=== PATIENT | male | born 1945 | race Caucasian/White ===

== ENCOUNTER → 2024-06-08 | Outpatient (CLI) | payer OTHER | END | disposition home or self-care (01) | LOC: SHCH 15:08 | PROVIDERS: ATTEND Student in an Organized Health Care Education/Training Program | DX: I48.19 Other persistent atrial fibrillation (principal); R06.02 Shortness of breath | CPT/HCPCS: 93306 ==

== ENCOUNTER → 2024-07-07 | Outpatient (CLI) | payer OTHER ==
[~2024-07-07] VITALS: Ht 177.8 cm; Wt 90.6 kg
[~2024-07-07] MED LIST: AMIO200T68 PO; APIX2.5T PO; ATOR-2 PO; CLOP75TA32 PO; DOXA8TAB81 PO; FURO20TA4 PO; HYDR50TA37 PO; SERT-439 PO; VALS160T29 PO
[2024-07-07 09:47] VITALS: BP 202/84; PULSE 75; RESP 14; TEMP 98.2
[2024-07-07 09:59] LABS: BASOPHILS # (AUTO) 0.01 K/uL (0.00-0.20); BASOPHILS % (AUTO) 0.1 % (0.0-5.0); EOSINOPHILS # (AUTO) 0.05 K/uL (0.00-0.70); EOSINOPHILS % (AUTO) 0.7 % (0.0-8.0); HEMATOCRIT 41.4 % (42-54); IMMATURE GRANULOCYTE ABSOLUTE 0.05 K/uL (0-1); LYMPHOCYTES # (AUTO) 1.1 K/uL (1.0-4.8); LYMPHOCYTES % (AUTO) 15.9 % (21.0-51.0); MEAN CORPUSCULAR HEMOGLOBIN 28.9 pg (27.0-33.0); MEAN CORPUSCULAR HGB CONC 31.4 g/dL (32.0-36.0); MONOCYTES # (AUTO) 0.5 K/uL (0.1-1.0); MONOCYTES % (AUTO) 6.9 % (3.0-13.0); NEUTROPHILS # (AUTO) 5.2 K/uL (1.8-7.7); NEUTROPHILS % (AUTO) 75.7 % (40.0-77.0); PLATELET COUNT (AUTO) 160 K/uL (130-400); RED CELL DISTRIBUTION WIDTH 14.6 % (11.0-15.5); WHITE BLOOD COUNT (AUTO) 6.8 K/uL (4.8-10.8)
[2024-07-07 10:08] LABS: POTASSIUM 3.8 mmol/L (3.5-5.1)
--- NOTE | 2024-07-08 10:36 | NUR ---
report dr goff informed pt reported he is on eliquis 2.5mg bid not 5mg bid. received orders to cancel. dr adams was also notified by dr goff. pt notified
== END ==
LOC: EDUNIT# 06-08 11:00 → DAH 08:00 → EDSTATUS 07-09 09:00
PROVIDERS: ATTEND Student in an Organized Health Care Education/Training Program
DX: Z01.818 Encounter for other preprocedural examination (principal); I48.19 Other persistent atrial fibrillation; Z82.49 Family history of ischemic heart disease and other diseases of the circulatory system; Z83.3 Family history of diabetes mellitus; Z79.899 Other long term (current) drug therapy
CPT/HCPCS: 36415; 80048; 85025

== ENCOUNTER 2024-08-26 09:01 | Day surgery (SDC) | payer OTHER ==
[2024-08-24 14:40] LABS: BASOPHILS # (AUTO) 0.02 K/uL (0.00-0.20); BASOPHILS % (AUTO) 0.4 % (0.0-5.0); EOSINOPHILS % (AUTO) 2.2 % (0.0-8.0); HEMATOCRIT 38.1 % (42-54); IMMATURE GRANULOCYTE ABSOLUTE 0.01 K/uL (0-1); LYMPHOCYTES # (AUTO) 1.1 K/uL (1.0-4.8); LYMPHOCYTES % (AUTO) 24.5 % (21.0-51.0); MEAN CORPUSCULAR HEMOGLOBIN 28.9 pg (27.0-33.0); MEAN CORPUSCULAR HGB CONC 31.5 g/dL (32.0-36.0); MEAN CORPUSCULAR VOLUME 91.8 fL (79-99); MONOCYTES # (AUTO) 0.5 K/uL (0.1-1.0); MONOCYTES % (AUTO) 10.7 % (3.0-13.0); NEUTROPHILS # (AUTO) 2.8 K/uL (1.8-7.7); PLATELET COUNT (AUTO) 121 K/uL (130-400); RED BLOOD CELL COUNT(AUTO) 4.15 MIL/uL (4.50-6.20); RED CELL DISTRIBUTION WIDTH 15.7 % (11.0-15.5); WHITE BLOOD COUNT (AUTO) 4.6 K/uL (4.8-10.8)
[2024-08-24 14:41] VITALS: BP 180/79; PULSE 60; RESP 18; TEMP 98.1
--- NOTE | 2024-08-24 14:41 | EKG ---
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
[2024-08-24 14:50] LABS: CREATININE 1.1 mg/dL (0.5-1.3); POTASSIUM 4.4 mmol/L (3.5-5.1)
[2024-08-24 14:53] LABS: INR 1.29 (0.85-1.15); PROTHROMBIN TIME 13.3 SEC (9.6-11.6)
[2024-08-24 14:54] LABS: PARTIAL THROMBOPLASTIN TIME 30.9 SEC (26.3-35.5)
[~2024-08-26] VITALS: Ht 180.3 cm; Wt 93.0 kg
[~2024-08-26 09:01] MED LIST changes: -APIX2.5T PO; +APIX5TAB PO; -HYDR50TA37 PO
[2024-08-26 09:25] VITALS: BP 184/73; PULSE 62; RESP 16; TEMP 97.9
[2024-08-26] MEDS ORDERED: 0.9%NACL 1000ML 1,000 ML IV SCH (10:00)
[2024-08-26] MEDS ORDERED: LIDOCAINE HCL 2% VISCOUS 15 ML UDCUP PO ONE (10:00)
[2024-08-26] MEDS ORDERED: proPOFol 10 MG/ML 20ML VIAL IV ONE ×2 (10:25→10:31)
[2024-08-26] MEDS ORDERED: LIDOCAINE PF 100MG/5ML (2%) SYRINGE 5ML ONE (10:30)
--- NOTE | 2024-08-26 10:30 | NUR ---
DR. Mile FRY ARRIVED ASKING IF ORDER STATE CARDIOVERSION BY DR. ZUNIGA WELL, VERIFIED ORDERS WITH DR. FRY AND NO ORDERS FOR CARDIOVERSION BY DR. ZUNIGA NOTED. SHE CALLED DR. ZUNIGA TO CONFIRM IF IT CAN BE DONE HE DID STATE YES. WRITTEN CONSENT WAS DONE PROCEDURE WAS EXPLAINED TO PT BY DR. FRY AND MYSELF.
[2024-08-26] MEDS ORDERED: phenylEPHRINE HCL 10 MG/ML 1ML VIAL IV ONE (10:39)
--- NOTE | 2024-08-26 10:42 | NUR ---
RUPALI STARTED AT THIS TIME VSS NAD WILL CONTINUE TO MONITOR PT.
--- NOTE | 2024-08-26 10:44 | NUR ---
DURING RUPALI DR. FRY STATED WE WILL NOT BE ABLE TO DO THE SYNCHRONIZED CARDIOVERSION D/T SMALL BLOOD CLOT IN APPENDAGE, DR. ZUNIGA AT BEDSIDE AGREED TO ABORT SYNCHRONIZED CARDIOVERSION D/T BLOOD CLOT. RUPALI CONTINUED VSS NAD DURING PROCEDURE.
--- NOTE | 2024-08-26 10:49 | NUR ---
RUPALI FINISHED AT THIS TIME ANJU GARNETT
[2024-08-26 11:05] VITALS: BP 162/65; PULSE 56; RESP 14
--- NOTE | 2024-08-26 11:05 | NUR ---
PT AWAKE SPEAKING WITH STAFF.VSS
[2024-08-26 11:20] VITALS: BP 162/66; PULSE 51; RESP 14
[2024-08-26 11:35] VITALS: BP 173/68; PULSE 56; RESP 15
[2024-08-26 11:50] VITALS: BP 172/62; PULSE 56; RESP 14
--- NOTE | 2024-08-26 14:17 | HMCSR ---
APPROVED REPORT EXAM: Transesophageal echocardiogram with color flow Doppler. INDICATION ICD: Atrial fibrillation Reason For Test : Rule out Intracardiac Thrombus. PROCEDURE After obtaining informed consent, patient underwent transesophageal echo in the daypatient dept. 15 mL 2% Viscous Lidocaine was given as a topical anesthetic prior to the administration of the consc ious sedation. Type of Sedation: General Anesthesia Sedation was administered by please refer to medication administration record. . Sedation was achieved with please refer to medication administration record. intravenously. Transesophageal probe was inserted and advanced into esophagus without difficulty by Selina Romero MD. RUPALI was performed and images were obtained, probe was removed without complications. Throughout the procedure, the blood pressure, pulse oximetry, cardiac rhythm, and rate were monitored . The patient tolerated the procedure without adverse effects. Recovery from conscious sedation was une ventful and vital signs were stable. Left Ventricle Left ventricular cavity size is normal. There is normal left ventricular wall thickness. LVEF is 50-5 5%. Right Ventricle The right ventricle is normal size. The right ventricular systolic function is normal. Atria The left atrium is severely dilated. Spontaneous contrast noted in left atrium. Left atrial appendage thrombus noted. No evidence of PFO/ASD by color doppler. The right atrium is severely dilated.Sponta neous contrast noted in right atrium. Aortic Valve TAVR present Paravalvular leak noted. Moderate aortic regurgitation. There is no aortic valvular sten osis. Mitral Valve Mitral valve leaflets open well. There is mild to moderate mitral valve regurgitation noted with two eccentric jets. There is no mitral valve stenosis. Tricuspid Valve The tricuspid valve is normal in structure. There is moderate tricuspid valve regurgitation noted. Pulmonic Valve The pulmonary valve is normal in structure. There is no pulmonic valvular regurgitation. Great Vessels The aortic root is normal in size. The ascending aorta is normal in size.The descending aorta is norm al in size. Pericardium There is no pericardial effusion. Conclusion Left ventricular cavity size is normal. LVEF is 50-55%. The right ventricle is normal size. The right ventricular systolic function is normal. The left atrium is severely dilated. Spontaneous contrast noted in left atrium. Left atrial appendage thrombus noted. The right atrium is severely dilated.Spontaneous contrast noted in right atrium. No evidence of PFO/ASD by color doppler. TAVR present Paravalvular leak noted. Moderate aortic regurgitation. There is mild to moderate mitral valve regurgitation noted with two eccentric jets. There is moderate tricuspid valve regurgitation noted. There is no pericardial effusion.
--- NOTE | 2024-08-27 11:06 | EKG ---
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
== END 2024-08-26 12:05 | disposition home or self-care (01) ==
LOC: DAH 09:01 → EDSTATUS 11:00 → DAH 12:05
PROVIDERS: ATTEND Student in an Organized Health Care Education/Training Program
DX: I48.19 Other persistent atrial fibrillation (principal); I08.3 Combined rheumatic disorders of mitral, aortic and tricuspid valves; I49.3 Ventricular premature depolarization; I35.0 Nonrheumatic aortic (valve) stenosis; I10 Essential (primary) hypertension; R06.02 Shortness of breath; I27.20 Pulmonary hypertension, unspecified; R00.2 Palpitations; E78.2 Mixed hyperlipidemia; Z90.49 Acquired absence of other specified parts of digestive tract; Z79.01 Long term (current) use of anticoagulants; Z79.899 Other long term (current) drug therapy
CPT/HCPCS: 80048; 85025; 85610; 85730; 36415; 93005 ×2; 93312; 82948; 93325; J2003; J2704; A4620; A4215; A4222; A4221; A4663; A4216; A4606; A4223 ×3; J2371; J3490

== ENCOUNTER 2024-12-16 08:11 | Inpatient (IN) | payer OTHER ==
--- NOTE | 2024-12-14 09:43 | EKG ---
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
[2024-12-14 09:47] LABS: IMMATURE GRANULOCYTE ABSOLUTE 0.02 K/uL (0-1); NUCLEATED RED BLOOD CELLS 0.0 % (0.0-0.19); PLATELET COUNT (AUTO) 133 K/uL (130-400); RED BLOOD CELL COUNT(AUTO) 3.28 MIL/uL (4.50-6.20); RED CELL DISTRIBUTION WIDTH 17.0 % (11.0-15.5); WHITE BLOOD COUNT (AUTO) 5.1 K/uL (4.8-10.8)
[2024-12-14 09:56] VITALS: BP 137/52; PULSE 54; RESP 15; TEMP 97.7
[2024-12-14 09:57] LABS: INR 2.59 (0.85-1.15)
[2024-12-14 09:58] LABS: CREATININE 1.4 mg/dL (0.5-1.3); GLOMERULAR FILTR. RATE CALC 51.0 mL/min (>90); GLUCOSE,RANDOM 106.0 mg/dL (70-105); SODIUM SERUM 141.0 mmol/L (136-145); UREA NITROGEN, BLOOD 29.0 mg/dL (7-18)
[~2024-12-16] VITALS: Ht 180.3 cm; Wt 87.5 kg
[2024-12-16] VITALS (37 sets, daily range): BP systolic 96–173; BP diastolic 47–76; PULSE 43–61; RESP 8–19; TEMP 97.7–98.1; O2SAT 97
[~2024-12-16 08:11] MED LIST changes: -AMIO200T68 PO; +AMIO200T73 PO; -APIX5TAB PO; +CARV12.511 PO; -FURO20TA4 PO; +FURO40TA5 PO; +HYDR100T15 PO; +ISOS30TA92 PO; +POTA-202 PO; +WARF-57 PO
[2024-12-16] MEDS: 0.9%NACL 1000ML 1,000 ML IV SCH (08:59)
--- NOTE | 2024-12-16 10:00 | NUR ---
RUPALI: THE APPROPRIATE TIME OUT WAS PERFORMED INCLUDING PATIENTS IDENTIFICATION, DATE OF , PHYSICIAN AND PROCEDURE TO BE PREFORMED AT 10:00 AM AND THERE WERE NO SAFETY ISSUES IDENTIFIED. VERSED 2MG IV AND FENTANYL 50 MCG IV GIVEN ORDERED PER DR. FRY. ATTEMPTED TO INSERT SCOPE BUT UNSUCCESSFUL AT 10:[address] NATION NOTIFIED FOR ANESTHESIA TO BE GIVEN. ANESTHESIA MEDICATION STARTED AT 10:[address] NATION. SCOPE INSERTED AT 10:28 AM WITH NO PROBLEMS. COMPLETED PROCEDURE AT10:35 AM. PT TOLERATED PROCEDURE WELL.
[2024-12-16] MEDS: LIDOCAINE HCL 2% VISCOUS 15 ML UDCUP PO ONE (11:06)
[2024-12-16] MEDS: MIDAZOLAM HCL 1 MG/ML 2ML VIAL IVP ONE (11:08)
--- NOTE | 2024-12-16 14:07 | NUR ---
REPORT: REPORT GIVEN TO GULSHAN KNIGHT RN.
[2024-12-16] MEDS ORDERED: PoTASSium chl 10% ELIXIR 20MEQ 20 MEQ/15 ML UDCUP PO PRN (15:00)
[2024-12-16] MEDS ORDERED: LACTULOSE 20 GM/30 ML UDCUP PO PRN (15:00)
[2024-12-16] MEDS ORDERED: MAGNESIUM 2GM PREMIX 50ML 50 ML IV PRN (15:00)
--- NOTE | 2024-12-16 15:20 | HP ---
[facility] HISTORY AND PHYSICAL Date of Service: Dec 16, 2024 Time of Service: 14:47 HISTORY OF PRESENT ILLNESS: [ ] This is a 78-year-old male underwent a repeat bonnie to evaluate left arterial appendage thrombus with Dr. Faviola adams on anticoagulation therapy switch Eliquis to warfarin5 mg every day on 09/07/2024.. Postprocedure AFib with low voltage we will be admitted overnight for observation. The patient has 2+ edema to lower extremity secondary to fluid overload patient is on Lasix 40 mg which was increased on 11/12/2024. Significant other at bedside all questions were concerned. Patient uses CPAP at night for sleep apnea advice significant other to bring from home so patient can use during the course of stay. Patient was seen in day surgery. He is fully awake alert oriented x3. Denied chest pain, palpitations. Patient reports shortness a breath with moderate exertion. REVIEW OF SYSTEMS A 14 point ROS was obtained all relevant positive documented otherwise ROS negative PAST MEDICAL HISTORY: [ ] Refer to HPI PAST SURGICAL HISTORY: [ ] Appendectomy tvar, left heart catheterization 03/01/2024 PAST SOCIAL HISTORY: [ ] Drinks 1-2 beers on a daily basis. Denies smoking tobacco products patient was a former smoker quit in 1993. FAMILY HISTORY: [ ] Noncontributory Coded Allergies: rivaroxaban (Unverified Allergy, Unknown, 12/14/24) PHYSICAL EXAM GENERAL APPEARANCE: The patient is awake, alert, and oriented, in no acute cardiopulmonary distress. NEUROLOGICAL: Cranial nerves II-XII grossly intact. Motor is 5/5 in bilateral upper and lower extremities proximal to distal. No sensory deficits. HEENT: Face is symmetric. Pupils are equal and reactive. Extraocular movements are intact. NECK: Supple. No JVD. No thyromegaly. No submental, submandibular, pre- /postauricular, occipital or supraclavicular lymphadenopathy. CHEST: Normal chest expansion. No Telemetry. LUNGS: Absence of any rales, rhonchi or any wheezing. CARDIOVASCULAR: Regular. S1 and S2 normal. No appreciable rubs, murmurs or gallops. ABDOMEN: Soft, nontender, and nondistended. There is no rebound, voluntary guarding, or rigidity. : Deferred. No Rose. EXTREMITIES: Non-edematous and not cyanotic. No clubbing. Good capillary refill. SKIN: No skin breakdown. Vital Sign (Last 24 Hours) 12/16/24 12/16/24 12/16/24 08:25 12:00 13:00 Temp 97.7 Pulse 51 Resp 15 B/P (MAP) 137/62 Pulse Ox 99 O2 Delivery Nasal Cannula O2 Flow Rate 2.0 FiO2 21 LABS: Laboratory: Test 12/16/24 08:27 Range/Units Whole Blood Glucose 101 70-110 MG/DL Current Medications Medications (Trade) Dose Ordered Sig/Jesus Route PRN Reason Start Time Stop Time Status Last Admin Dose Admin Sodium Chloride 1,000 ml @ 0 mls/hr Q0M IV 12/16/24 08:30 01/15/25 08:29 12/16/24 08:59 20 MLS/HR DIAGNOSTICS / RADIOLOGY: [ ] ASSESSMENT: AFib status post BONNIE hx: left atrial appendage thrombus A Fib with low response post procedure: POA 2+ edematous to lower extremity secondary Fluid overload POA hypercoagulable state secondary to Afibb on Coumadin Therapy POA CRF Stage III chronic anemia POA Aortic stenosis severe status post TAVR 03/2024 MICHELLE on Cpap POA Chronic problem hypertension, hyperlipidemia, diabetes Allergies Xarelto PLAN: [ ] Admit: PCCU condition: Guarded Status: Full code IVF: Hep-Lock fluid contraindicated Strict I&Os fluid restriction 1.5 L daily daily weight We will continue with diuretics 40 mg IV daily. Coumadin 5 mg po daily: daily INR. Consultants alteration tailor's oxygen supplemental as needed to keep O2 sat above 92%, CPAP at HS Keep Hbg above 7.0 transfuse as needed, monitor for acute bleeding. Imaging venous Doppler bilateral lower extremity rule out DVT Labs cbc, cmp, mag+ Replace electrolytes as needed as per protocol to keep potassium above 4.0 magnesium 2.0. Home medications pending to be reviewed by RN nurse. PRN: MEDICATIONS Tylenol 650 mg po every 4 hrs for fever Zofran 4 mg IV every 6 hrs for n/v bowel regiment: lactulose 20 gm PO BID PRN constipation fall precaution: call light in reach PT Supportive measures: DVT ppx, GI ppx all questions answered time spent: > 35 min Supervising MD: Dr. Yousif c/d This document was generated in part using voice recognition software, occasional wrong word or sound alike substitutions may have occurred due to the inherent limitations of voice recognition software. Read the chart carefully and recognize using context, where the substitutions have occurred. Although every effort was made to edit the content, pathology transcriptionist and typing errors may occur ADVANCED CARE PLANNING 1. Which of the following were discussed? Hospice Care - Yes / No Therapeutic options - Yes / No Advance Directives - Yes / No Other discussions - 2. Discussed with who? 3. Voluntary nature of this service was explained to the patient? Yes / No 4. Amount of time spent - 5. Reviewed by Physician? (if this service was performed by NPP) Yes / No ATTESTATION BY PHYSICIAN I have seen and examined the patient. I reviewed the documentation, medical decision making, and treatment plan as noted by the mid-level provider above. I agree with the findings and plan of care. LISA YOUSIF MD, ELIZABETH NP Dec 16, 2024 15:20
--- NOTE | 2024-12-16 15:33 | HMCSR ---
APPROVED REPORT EXAM: Transesophageal echocardiogram with color flow Doppler. INDICATION ICD: I23.6, Rule out thrombus Reason For Test : Rule out Intracardiac Thrombus. PROCEDURE After obtaining informed consent, patient underwent transesophageal echo in the daypatient room 14. 15 mL 2% Viscous Lidocaine was given as a topical anesthetic prior to the administration of the consc ious sedation. Type of Sedation: General Anesthesia Sedation was administered by Please refer to medication adminstration record.. Sedation was achieved with Please refer to medication adminstration record. intravenously. Transesophageal probe was inserted and advanced into esophagus without difficulty by Selina Romero MD . RUPALI was performed and images were obtained, probe was removed without complications. Throughout the procedure, the blood pressure, pulse oximetry, cardiac rhythm, and rate were monitored . Left Ventricle The left ventricle is normal size. There is mild to moderate concentric left ventricular wall thickne ss. The LVEF is > 55%. Indeterminate diastolic function. Right Ventricle The right ventricle is moderately dilated. Systolic function is mildly reduced. Atria The left atrium is severely dilated. No left atrial appendage thrombus noted. There is no mass or thr ombus suspected in the left atrium. No evidence of PFO by color flow Doppler. The right atrium is sev erely dilated. There is no mass or thrombus suspected in the right atrium. Aortic Valve Prosthetic aortic valve. Moderate paravalvular leak noted. Mild aortic regurgitation. There is no aor tic valvular stenosis. Mitral Valve The mitral valve is normal in structure. There is moderate to severe mitral valve regurgitation noted . There is no mitral valve stenosis. Tricuspid Valve The tricuspid valve is normal in structure. There is no tricuspid valve regurgitation noted. Pulmonic Valve The pulmonary valve is normal in structure. There is no pulmonic valvular regurgitation. Great Vessels The aortic root is normal in size. Descending aorta appears dilated. Pericardium There is no pericardial effusion. Conclusion The left ventricle is normal size. There is mild to moderate concentric left ventricular wall thickness. The LVEF is > 55%. The right ventricle is moderately dilated. Systolic function is mildly reduced. The left atrium is severely dilated. No left atrial appendage thrombus noted. There is no mass or thrombus suspected in the left atrium. The right atrium is severely dilated. There is no mass or thrombus suspected in the right atrium. No evidence of PFO by color flow Doppler. Prosthetic aortic valve. Moderate paravalvular leak noted. Mild aortic regurgitation. There is moderate to severe mitral valve regurgitation noted. Descending aorta appears dilated. There is no pericardial effusion.
[2024-12-16 15:44] LABS: ASPARTATE AMINOTRANSFERASE 30.0 U/L (10-37); CREATININE 1.1 mg/dL (0.5-1.3); GLOMERULAR FILTR. RATE CALC 68.0 mL/min (>90); GLUCOSE,RANDOM 135.0 mg/dL (70-105); SODIUM SERUM 141.0 mmol/L (136-145); TOTAL PROTEIN, SERUM 6.2 g/dL (6.0-8.3); UREA NITROGEN, BLOOD 25.0 mg/dL (7-18)
[2024-12-16] MEDS: PoTASSium chloRIDE 20MEQ ER 20 MEQ ERTAB PO SCH (16:31)
[2024-12-16 17:30] LABS: INR 1.65 (0.85-1.15)
[2024-12-16] MEDS: WARFARIN SODIUM 5 MG TAB PO ONE (17:38)
--- NOTE | 2024-12-16 18:00 | NUR ---
NOTIFIED PATIENT GOING TO ROOM 221
--- NOTE | 2024-12-16 18:00 | NUR ---
HANDOFF REPORT REPORT GIVEN TO ALEXY GUNN VIA PHONE USING SBAR, ALL QUESTIONS ADDRESSED. WILL TRANSFER PATIENT TO ROOM 221 VIA BED.
--- NOTE | 2024-12-16 18:15 | NUR ---
Patient transferred to room 221 at this time. Patient denies any pain, no needs voiced at this time. Vital signs within normal limit (refer to log). Call haynes left within reach, bed in lowest position. ALEXY Beatty notified of patient arrival.
--- NOTE | 2024-12-16 18:50 | CONS ---
[facility] CARDIOLOGY CONSULTATION NOTE Date Patient Seen: Dec 16, 2024 Time of Visit: 18:34 Reason for Consultation: [ Atrial fibrillation ] History of Present Illness: [ The patient is an 78-year-old male with a medical history of HTN, HLD, and a- fib on anticoagulation with coumadin, severe aortic stenosis s/p TAVR with Dr. Cano on 04/01/2024 RUPALI--> revealed moderate prosthetic aortic valve regurgitation with mild paravalvular leak, left atrial appendage thrombus( 09-07-24). The patient underwent outpatient RUPALI to evaluate PARMJIT thrombus resolution, however he was noted to be in atrial fibrillation with low ventricular response, also a moderate para valvular leak was noted with mild aortic regurgitation , moderate / severe mitral valve regurgitation Past Medical History: [ refer to chart ] Past Surgical History: [Refer to HPI ] Family History: [Refer to HPI ] Social History: [Refer to HPI ] Habits: [Never] smoker. [Denies] alcohol consumption. [Denies] illicit drug use Review of Systems: A review of 12 point systems was negative set per HPI Physical Examination: GENERAL: [No acute distress.] HEAD: [Normal with no signs of head trauma.] EYES: [PERRLA, EOMI, conjunctiva and sclera normal.] ENT: [Hearing grossly intact, normal oropharynx.] NECK: [Supple without JVD. There is no tenderness, lymphadenopathy, or masses. No thyromegaly. Normal carotid upstrokes without bruits.] LUNGS: [Clear breath sounds bilaterally. No wheezes, or rhonchi.] HEART: [Irregularly irregular rate and rhythm. Normal S1 and S2 without mumurs, gallop or rub.] VASC: [Peripheral pulses +2 bilaterally.] ABD: [Bowel sounds normal, soft, nontender, no masses, no organomegaly. No audible bruits.] : [Not examined] LYMPH: [No lymphadenopathy noted.] EXT: [No clubbing, cyanosis or edema.] SKIN: [No rashes or lesions noted.] NEURO: [Awake, alert, and oriented x3. No focal sensory or strength deficits noted.] Vital Signs (last 8hr) Date Time Temp Pulse Resp B/P (MAP) Pulse Ox O2 Delivery O2 Flow Rate FiO2 12/16/24 18:00 60 15 130/63 98 Room Air 12/16/24 17:00 52 13 150/64 96 Room Air 12/16/24 16:00 58 14 130/60 97 Room Air 12/16/24 15:00 55 15 143/65 95 Room Air 12/16/24 14:00 51 14 147/69 Room Air 12/16/24 13:00 137/62 Nasal Cannula 2.0 12/16/24 12:30 144/66 Nasal Cannula 2.0 12/16/24 12:00 51 15 157/66 99 Nasal Cannula 2.0 12/16/24 11:45 47 11 152/65 99 Nasal Cannula 2.0 12/16/24 11:30 46 11 151/65 99 Nasal Cannula 2.0 12/16/24 11:15 51 11 156/71 99 Nasal Cannula 2.0 12/16/24 11:00 48 12 166/72 99 Nasal Cannula 2.0 12/16/24 10:55 44 17 168/74 99 Nasal Cannula 2.0 12/16/24 10:50 52 13 165/76 100 Nasal Cannula 2.0 12/16/24 10:45 48 13 172/76 100 Nasal Cannula 2.0 12/16/24 10:40 48 12 152/70 99 Nasal Cannula 2.0 12/16/24 10:35 51 14 151/69 100 CO2 FACE MASK 10.0 Laboratory: [ ] Chemistry Labs: Test 12/16/24 15:23 12/16/24 15:05 12/16/24 14:59 Range/Units Sodium Level 141 136-145 mmol/L Potassium Level 3.9 3.5-5.1 mmol/L Chloride Level 108 101-111 mmol/L Carbon Dioxide Level 29 21-32 mmol/L Blood Urea Nitrogen 25 H 7-18 mg/dL Creatinine 1.1 0.5-1.3 mg/dL Glomerular Filtration Rate Calc 68 >90 mL/min Random Glucose 135 H 70-105 mg/dL Total Calcium 7.9 L 8.5-10.1 mg/dL Magnesium Level 2.20 1.80-2.40 mg/dL Total Bilirubin 0.6 0.2-1.0 mg/dL Aspartate Amino Transf (AST/SGOT) 30 10-37 U/L Alanine Aminotransferase (ALT/SGPT) 34 12-78 U/L Alkaline Phosphatase 92 50-136 U/L Total Protein 6.2 6.0-8.3 g/dL Albumin 3.1 L 3.5-5.0 g/dL B-Type Natriuretic Peptide 882 H 0-100 pg/mL Whole Blood Glucose 138 H 70-110 MG/DL Coagulation Labs: Test 12/16/24 15:25 Range/Units Prothrombin Time 16.6 H 9.6-11.6 SEC Prothromb Time International Ratio 1.65 H 0.85-1.15 Diagnostics / Radiology: [Copy/Paste Echos/Imaging Report here] Assessment: [AFib status post RUPALI hx: left atrial appendage thrombus A Fib with low response post procedure: POA 2+ edematous to lower extremity secondary Fluid overload POA hypercoagulable state secondary to Afibb on Coumadin Therapy POA CRF Stage III chronic anemia POA Aortic stenosis severe status post TAVR 03/2024 MICHELLE on Cpap POA ] Plan: [# Atrial fibrillation ] left atrial appendage thrombus by RUPALI (09-07-24) Patient on coumadin. INR 1.65 The patient underwent outpatient RUPALI to evaluate PARMJIT thrombus resolution, however he was noted to be in atrial fibrillation with slow ventricular response, also a moderate para valvular leak was noted with mild aortic regurgitation , moderate / severe mitral valve regurgitation Start Lasix 20 mg IV every 8 hrs with Potassium chloride 20 meq PO daily The patient is endorsing ongoing positional dizziness , We will check orthostatics ever 12 hrs We will continue his home medication Coumadin 5 mg daily Hold Amiodarone 200 mg daily due to bradyacardia We will consult EP ( Dr Orta ) for recommendations Thank you for this consult , cardiology will continue to follow along Selina Romero MD ATTESTATION BY PHYSICIAN I have seen and examined the patient, reviewed the above documentation, participated in medical decision making, made necessary modifications, and agree with the treatment plan as documented by my mid-level provider above. MD ANG Camarena DANIELLE M MD Dec 16, 2024 18:50
[2024-12-16] MEDS: DOXAZOSIN MESYLATE 2 MG TABLET PO SCH (20:40)
[2024-12-17] VITALS (11 sets, daily range): BP systolic 98–154; BP diastolic 43–56; PULSE 52–71; RESP 16–20; TEMP 97.7–98.7; O2SAT 98
--- NOTE | 2024-12-17 04:53 | HMCIMG ---
EXAMINATION: SPECTRAL DOPPLER ULTRASOUND EXAMINATION OF THE BILATERAL LOWER EXTREMITY VEINS. CLINICAL HISTORY: Swelling and shortness of breath. COMPARISON: None provided. TECHNIQUE: Real-time ultrasound scan of the veins of the bilateral lower extremity with color Doppler flow, spectral waveform analysis and compression. FINDINGS: DEEP VEINS: The common femoral, superficial femoral, and popliteal veins are echolucent and compressible. There is normal color Doppler flow throughout. The visualized calf veins appear patent. SUPERFICIAL VEINS: The greater saphenous veins are patent and compressible. SOFT TISSUES: No popliteal fossa cyst or other abnormalities. IMPRESSION: No deep venous thrombosis evident in the bilateral lower extremity. No superficial thrombophlebitis in the bilateral lower extremity. /[place]
[2024-12-17 04:54] LABS: IMMATURE GRANULOCYTE ABSOLUTE 0.02 K/uL (0-1); NUCLEATED RED BLOOD CELLS 0.0 % (0.0-0.19); PLATELET COUNT (AUTO) 127 K/uL (130-400); RED BLOOD CELL COUNT(AUTO) 3.03 MIL/uL (4.50-6.20); RED CELL DISTRIBUTION WIDTH 17.2 % (11.0-15.5); WHITE BLOOD COUNT (AUTO) 4.7 K/uL (4.8-10.8)
[2024-12-17 05:09] LABS: INR 1.54 (0.85-1.15)
[2024-12-17 05:21] LABS: ASPARTATE AMINOTRANSFERASE 30.0 U/L (10-37); CREATININE 1.1 mg/dL (0.5-1.3); GLOMERULAR FILTR. RATE CALC 68.0 mL/min (>90); GLUCOSE,RANDOM 93.0 mg/dL (70-105); SODIUM SERUM 140.0 mmol/L (136-145); TOTAL PROTEIN, SERUM 6.4 g/dL (6.0-8.3); UREA NITROGEN, BLOOD 28.0 mg/dL (7-18)
[2024-12-17] MEDS: PoTASSium chloRIDE 20MEQ ER 20 MEQ ERTAB PO PRN (05:59)
[2024-12-17] MEDS: ISOSORBIDE MONO 30MG SR TAB PO SCH (09:24)
[2024-12-17] MEDS: PoTASSium chloRIDE 20MEQ ER 20 MEQ ERTAB PO SCH (09:25)
--- NOTE | 2024-12-17 09:31 | PN ---
[facility] PROGRESS NOTE Date of Service: Dec 17, 2024 Time of Service: 09:26 SUBJECTIVE: [ ] This is a 78-year-old male underwent a repeat bonnie to evaluate left arterial appendage thrombus with Dr. Faviola adams on anticoagulation therapy switch Eliquis to warfarin5 mg every day on 09/07/2024.. Postprocedure AFib with low voltage we will be admitted overnight for observation. The patient has 2+ edema to lower extremity secondary to fluid overload patient is on Lasix 40 mg which was increased on 11/12/2024. Significant other at bedside all questions were concerned. Patient uses CPAP at night for sleep apnea advice significant other to bring from home so patient can use during the course of stay. Patient was seen in day surgery. He is fully awake alert oriented x3. Denied chest pain, palpitations. Patient reports shortness a breath with moderate exertion 12/17/24 patient was seen in PCCU. Patient continues with bradycardia waiting for EP DR Orta . Patient has edema to lower extremity improving. Denied chest pain or shortness for breath. REVIEW OF SYSTEMS A 14 point ROS was obtained all relevant positive documented otherwise ROS negative PHYSICAL EXAM GENERAL APPEARANCE: The patient is awake, alert, and oriented, in no acute cardiopulmonary distress. NEUROLOGICAL: Cranial nerves II-XII grossly intact. Motor is 5/5 in bilateral upper and lower extremities proximal to distal. No sensory deficits. HEENT: Face is symmetric. Pupils are equal and reactive. Extraocular movements are intact. NECK: Supple. No JVD. No thyromegaly. No submental, submandibular, pre- /postauricular, occipital or supraclavicular lymphadenopathy. CHEST: Normal chest expansion. No Telemetry. LUNGS: Absence of any rales, rhonchi or any wheezing. CARDIOVASCULAR: Regular. S1 and S2 normal. No appreciable rubs, murmurs or gallops. ABDOMEN: Soft, nontender, and nondistended. There is no rebound, voluntary guarding, or rigidity. : Deferred. No Rose. EXTREMITIES: Non-edematous and not cyanotic. No clubbing. Good capillary refill. SKIN: No skin breakdown. Vital Signs (last 8hr) Date Time Temp Pulse Resp B/P (MAP) Pulse Ox O2 Delivery O2 Flow Rate FiO2 12/17/24 08:00 97.7 56 20 144/54 98 Room Air 12/17/24 03:14 98.1 57 16 148/53 98 CPAP LABS: Laboratory: Test 12/17/24 04:58 12/17/24 04:45 12/16/24 15:05 Range/Units Whole Blood Glucose 87 70-110 MG/DL White Blood Count 4.7 L 4.8-10.8 K/uL Red Blood Count 3.03 L 4.50-6.20 MIL/uL Hemoglobin 7.7 L 14.0-18.0 g/dL Hematocrit 25.6 L 42-54 % Mean Corpuscular Volume 84.5 79-99 fL Mean Corpuscular Hemoglobin 25.4 L 27.0-33.0 pg Mean Corpuscular Hemoglobin Concent 30.1 L 32.0-36.0 g/dL Red Cell Distribution Width 17.2 H 11.0-15.5 % Platelet Count 127 L 130-400 K/uL Mean Platelet Volume 11.0 H 7.5-10.5 fL Immature Granulocyte % (Auto) 0.4 0-1 % Neutrophils (%) (Auto) 63.9 40.0-77.0 % Lymphocytes (%) (Auto) 20.4 L 21.0-51.0 % Monocytes (%) (Auto) 12.1 3.0-13.0 % Eosinophils (%) (Auto) 2.6 0.0-8.0 % Basophils (%) (Auto) 0.6 0.0-5.0 % Neutrophils # (Auto) 3.0 1.8-7.7 K/uL Lymphocytes # (Auto) 1.0 1.0-4.8 K/uL Monocytes # (Auto) 0.6 0.1-1.0 K/uL Eosinophils # (Auto) 0.12 0.00-0.70 K/uL Basophils # (Auto) 0.03 0.00-0.20 K/uL Absolute Immature Granulocyte (auto 0.02 0-1 K/uL Nucleated Red Blood Cells 0.0 0.0-0.19 % Prothrombin Time 15.6 H 9.6-11.6 SEC Prothromb Time International Ratio 1.54 H 0.85-1.15 Sodium Level 140 136-145 mmol/L Potassium Level 3.6 3.5-5.1 mmol/L Chloride Level 106 101-111 mmol/L Carbon Dioxide Level 29 21-32 mmol/L Blood Urea Nitrogen 28 H 7-18 mg/dL Creatinine 1.1 0.5-1.3 mg/dL Glomerular Filtration Rate Calc 68 >90 mL/min Random Glucose 93 70-105 mg/dL Total Calcium 8.0 L 8.5-10.1 mg/dL Magnesium Level 2.10 1.80-2.40 mg/dL Total Bilirubin 0.7 0.2-1.0 mg/dL Aspartate Amino Transf (AST/SGOT) 30 10-37 U/L Alanine Aminotransferase (ALT/SGPT) 36 12-78 U/L Alkaline Phosphatase 94 50-136 U/L Total Protein 6.4 6.0-8.3 g/dL Albumin 3.3 L 3.5-5.0 g/dL B-Type Natriuretic Peptide 882 H 0-100 pg/mL Current Medications Medications (Trade) Dose Ordered Sig/Jesus Route PRN Reason Start Time Stop Time Status Last Admin Dose Admin Acetaminophen (TYLenol 325MG TAB) 650 mg Q4H PRN PO TEMPERATURE GREATER THAN 101.5 12/16/24 15:00 01/15/25 14:59 Atorvastatin Calcium (LIPItor 40MG) 80 mg HS PO 12/16/24 21:00 01/15/25 20:59 12/16/24 20:40 80 MG Carvedilol (Coreg 12.5MG) 12.5 mg BID PO 12/16/24 21:00 01/15/25 20:59 12/16/24 20:41 12.5 MG Clopidogrel Bisulfate (plaVIX 75MG) 75 mg HS PO 12/16/24 21:00 01/15/25 20:59 12/16/24 20:41 75 MG Doxazosin Mesylate (Doxazosin Mesylate) 8 mg HS PO 12/16/24 21:00 01/15/25 20:59 12/16/24 20:40 8 MG Furosemide (LASix 20MG VIAL) 20 mg Q8H IV 12/16/24 16:00 01/15/25 15:59 12/17/24 01:15 20 MG Furosemide (LASix 40MG TAB) 40 mg DAILY PO 12/17/24 09:00 12/16/24 19:28 DC Hydralazine HCl ([id number] TAB) 100 mg BID PO 12/16/24 21:00 01/15/25 20:59 12/16/24 20:41 100 MG Insulin Human Regular (humuLIN R 100 UNIT/ML 3ML) INSULIN SLIDING SCAL... ACHS SQ 12/16/24 16:30 01/15/25 16:29 Isosorbide Mononitrate (Imdur 30mg Sr) 30 mg DAILY PO 12/17/24 09:00 01/16/25 08:59 Lactulose (Constulose 20gm/ 30ml Udcup) 20 gm BID PRN PO CONSTIPATION 12/16/24 15:00 01/15/25 14:59 Losartan Potassium (CozAAR 100MG TAB) 100 mg DAILY PO 12/17/24 09:00 01/16/25 08:59 Magnesium Sulfate 50 ml @ 0 mls/hr PROTOCOL PRN IV low mag level 12/16/24 15:00 01/15/25 14:59 Ondansetron HCl (zoFRAN 4MG INJ) 4 mg Q6H PRN IVP NAUSEA/VOMITING 12/16/24 15:00 01/15/25 14:59 Pantoprazole Sodium (PROTonix 40MG INJ) 40 mg DAILY IVP 12/17/24 09:00 01/16/25 08:59 Potassium Chloride 100 ml @ 100 mls/hr AD PRN IV POTASSIUM PROTOCOL 12/16/24 15:00 01/15/25 14:59 Potassium Chloride (K-Dur/Klor-Con 20meq) 20 meq AD PRN PO POTASSIUM PROTOCOL 12/16/24 15:00 01/15/25 14:59 12/17/24 06:00 20 MEQ Potassium Chloride (K-Dur/Klor-Con 20meq) 20 meq DAILY PO 12/17/24 09:00 01/16/25 08:59 Potassium Chloride (K-Dur/Klor-Con 20meq) 20 meq Q24H PO 12/16/24 16:00 01/15/25 15:59 12/16/24 16:31 20 MEQ Potassium Chloride (KCl 10% Elixir 20meq/15ml) 20 meq AD PRN PO POTASSIUM PROTOCOL 12/16/24 15:00 01/15/25 14:59 Sertraline HCl (ZOloft 50 mg tab) 50 mg AM PO 12/17/24 09:00 01/16/25 08:59 Sodium Chloride 1,000 ml @ 0 mls/hr Q0M IV 12/16/24 08:30 01/15/25 08:29 12/16/24 08:59 20 MLS/HR DIAGNOSTICS / RADIOLOGY: [ ] ASSESSMENT: AFib status post BONNIE hx: left atrial appendage thrombus A Fib with low response post procedure: POA 2+ edematous to lower extremity secondary Fluid overload POA hypercoagulable state secondary to Afibb on Coumadin Therapy POA CRF Stage III chronic anemia POA Aortic stenosis severe status post TAVR 03/2024 MICHELLE on Cpap POA Chronic problem hypertension, hyperlipidemia, diabetes Allergies Xarelto PLAN: [ ] Admit: PCCU condition: Guarded Status: Full code Electrical Systems Engineer EP ( Dr Orta ) for recommendations, cardiology's IVF: Hep-Lock fluid contraindicated Strict I&Os fluid restriction 1.5 L daily daily weight continue with diuretics Lasix 20 mg IV every 8 hours Coumadin 5 mg po daily: daily INR. Orthostatic vitals fall precautions oxygen supplemental as needed to keep O2 sat above 92%, CPAP at HS Keep Hbg above 7.0 transfuse as needed, monitor for acute bleeding. Imaging venous Doppler bilateral lower extremity rule out DVT Labs cbc, cmp, mag+ Replace electrolytes as needed as per protocol to keep potassium above 4.0 magnesium 2.0. Home medications pending to be reviewed by RN nurse. Supportive measures: DVT ppx, GI ppx all questions answered time spent: > 35 min Supervising MD: Dr. Wang c/d This document was generated in part using voice recognition software, occasional wrong word or sound alike substitutions may have occurred due to the inherent limitations of voice recognition software. Read the chart carefully and recognize using context, where the substitutions have occurred. Although every effort was made to edit the content, hvac mechanical engineer and typing errors may occur ATTESTATION BY PHYSICIAN I have seen and examined the patient. I reviewed the documentation, medical decision making, and treatment plan as noted by the mid-level provider above. I agree with the findings and plan of care. NORAH WANG MD, ELIZABETH NP Dec 17, 2024 09:31
--- NOTE | 2024-12-17 12:12 | NUR ---
DCP: HOME Pt currently lives with joann Oneill [phone]. Pt does not have insecurities with food, fci, and/or utilities. Pt does not have DME, home health, or provider services. Pt does use a CPAP at home. PCP is Joaquim Stockton and uses [facility] for any RX needs. At DC pt will want to go home and family can assist with transportation. Addendum: 12/17/24 at 1213 by АННА CHOWDARY SS Amended: Links added.
--- NOTE | 2024-12-17 15:19 | CONS ---
[facility] CARDIAC ELECTROPHYSIOLOGY CONSULTATION Date Patient Seen: Dec 17, 2024 Time of Visit: 15:09 Reason for Consultation: Atrial fibrillation, bradycardia History of Present Illness: The patient is an 78-year-old male with a history of hypertension, hyperlipidemia, severe aortic stenosis status post TAVR by Dr. Cano in March of 2024. He also has a history of atrial fibrillation. Both the p atient in his are very cognizant of their history. It appears as though he has been in persistent AFib for about 60 years. According to the patient, there have never been any previous attempts at restoring sinus rhythm by his physicians in [place]. He was in atrial fibrillation both prior to and following his TAVR. On 08/26/2024, the patient underwent transesophageal echoc ardiogram in preparation for cardioversion. According to the patient, he was started on amiodarone prior to this. RUPALI showed left atrial appendage thrombus and a severely dilated left atrium and right atrium. He also had a paravalvular leak with moderate aortic regurgitation. There was also [id number] mitral regurgitation with two eccentric jets and moderate tricuspid regurgitation. The LV ejection fraction was 50-55%. He was continued on amiodarone and a repeat RUPALI was done yesterday as an outpatient showing resolution of the previous thrombus. The LV ejection fraction was greater than 55% and other findings were identical to the previous study. He was admitted due to bradycardia and symptoms of ongoing orthostatic hypotension. He is also on warfarin with an INR of 1.65. Home medications pertinent to his bradycardia are carvedilol 12.5 mg b.i.d. and amiodarone 200 mg daily. In addition, he is on hydralazine, furosemide, isosorbide mononitrate, and valsartan, all of which can contribute to orthostatic hypotension. The patient denies any episodes of near-syncope or syncope. He manages his dizziness by sitting up at the edge of the bed for a few minutes prior to standing. Past Medical History: As above Family History: Noncontributory Social History: Denies smoking or alcohol abuse Review of Systems: Negative on a 13 point review Physical Examination: General: The patient is in no apparent distress Neck: No JVD Lungs: Clear Heart: Irregularly irregular with no appreciable murmur Abdomen: Benign Extremities: 1+ edema bilaterally. Vital Signs (last 8hr) Date Time Temp Pulse Resp B/P (MAP) Pulse Ox O2 Delivery O2 Flow Rate FiO2 12/17/24 12:00 98.1 52 20 126/43 98 Room Air 12/17/24 09:25 144/54 12/17/24 09:00 98 Room Air* 0 21 12/17/24 08:00 97.7 56 20 144/54 98 Room Air Laboratory: [ ] Hematology Labs: Test 12/17/24 04:45 Range/Units White Blood Count 4.7 L 4.8-10.8 K/uL Red Blood Count 3.03 L 4.50-6.20 MIL/uL Hemoglobin 7.7 L 14.0-18.0 g/dL Hematocrit 25.6 L 42-54 % Mean Corpuscular Volume 84.5 79-99 fL Mean Corpuscular Hemoglobin 25.4 L 27.0-33.0 pg Mean Corpuscular Hemoglobin Concent 30.1 L 32.0-36.0 g/dL Red Cell Distribution Width 17.2 H 11.0-15.5 % Platelet Count 127 L 130-400 K/uL Mean Platelet Volume 11.0 H 7.5-10.5 fL Immature Granulocyte % (Auto) 0.4 0-1 % Neutrophils (%) (Auto) 63.9 40.0-77.0 % Lymphocytes (%) (Auto) 20.4 L 21.0-51.0 % Monocytes (%) (Auto) 12.1 3.0-13.0 % Eosinophils (%) (Auto) 2.6 0.0-8.0 % Basophils (%) (Auto) 0.6 0.0-5.0 % Neutrophils # (Auto) 3.0 1.8-7.7 K/uL Lymphocytes # (Auto) 1.0 1.0-4.8 K/uL Monocytes # (Auto) 0.6 0.1-1.0 K/uL Eosinophils # (Auto) 0.12 0.00-0.70 K/uL Basophils # (Auto) 0.03 0.00-0.20 K/uL Absolute Immature Granulocyte (auto 0.02 0-1 K/uL Nucleated Red Blood Cells 0.0 0.0-0.19 % Chemistry Labs: Test 12/17/24 04:58 12/17/24 04:45 12/16/24 15:05 Range/Units Whole Blood Glucose 87 70-110 MG/DL Sodium Level 140 136-145 mmol/L Potassium Level 3.6 3.5-5.1 mmol/L Chloride Level 106 101-111 mmol/L Carbon Dioxide Level 29 21-32 mmol/L Blood Urea Nitrogen 28 H 7-18 mg/dL Creatinine 1.1 0.5-1.3 mg/dL Glomerular Filtration Rate Calc 68 >90 mL/min Random Glucose 93 70-105 mg/dL Total Calcium 8.0 L 8.5-10.1 mg/dL Magnesium Level 2.10 1.80-2.40 mg/dL Total Bilirubin 0.7 0.2-1.0 mg/dL Aspartate Amino Transf (AST/SGOT) 30 10-37 U/L Alanine Aminotransferase (ALT/SGPT) 36 12-78 U/L Alkaline Phosphatase 94 50-136 U/L Total Protein 6.4 6.0-8.3 g/dL Albumin 3.3 L 3.5-5.0 g/dL B-Type Natriuretic Peptide 882 H 0-100 pg/mL Coagulation Labs: Test 12/17/24 04:45 Range/Units Prothrombin Time 15.6 H 9.6-11.6 SEC Prothromb Time International Ratio 1.54 H 0.85-1.15 Assessment: 1. Atrial fibrillation: This patient should be considered to have permanent atrial fibrillation, since it is extremely unlikely that sinus rhythm can be restored are maintained after this long period of time. Concomitant with this is severe left atrial dilatation. While he complained of symptoms that could be attributable to atrial fibrillation, most of these resolved following his TAVR. His only complaint at this point is occasional orthostatic lightheadedness. 2. Orthostatic lightheadedness: This is mild however it also occurs in the setting of significant hypertension. He is on for culprit medications, including carvedilol, isosorbide, hydralazine, furosemide, and to a lesser degree, valsartan. 3. Hypertension: This will need to be addressed in the setting of essential hypertension. Recommendations: 1. This patient has permanent atrial fibrillation and I would not recommend any further attempts at restoring sinus rhythm, either pharmacologically, or el ectrically. 2. Amiodarone has been discontinued 3. Discontinue carvedilol-this dosage of 12.5 mg b.i.d. is roughly equivalent to metoprolol 50 mg b.i.d., therefore this should be of prompt benefit in terms of his bradycardia, as well as his orthostatic symptoms.. 4. The patient will likely need different medications for his hypertension. It will be important to avoid as much as possible, nitrates, direct vasodilators, and diuretics. This is not always possible however I would suggest a trial of pindolol 5-10 mg b.i.d.. This has a significant amount of TIESHA so is unlikely to cause a significant degree of bradycardia, certainly not as much as carvedilol. 5. If hypertension becomes significantly difficult to treat then I would suggest evaluation with a CT angiogram of to evaluate the renal arteries. 6. If the patient feels well tomorrow and his high blood pressures remain below the threshold for hospital admission then he can likely be discharged from a cardiac standpoint. Thank you very much for this consultation. ANTONIO ZUNIGA MD Dec 17, 2024 15:19
[2024-12-17] MEDS: WARFARIN SODIUM 5 MG TAB PO SCH (17:00)
[2024-12-17] MEDS ORDERED: WARFARIN SODIUM 5 MG TAB PO ONE (17:30)
[2024-12-17] MEDS: WARFARIN SODIUM 5 MG TAB PO ONE (17:34)
--- NOTE | 2024-12-17 18:00 | NUR ---
ORTHOSTATIC VS DONE ORDERED BY DR. Sarwat FRY. REFER TO VS FLOW SHEET.
[2024-12-17] MEDS: PINDOLOL 5 MG TAB PO SCH (20:21)
[2024-12-18] VITALS (10 sets, daily range): BP systolic 111–158; BP diastolic 41–60; PULSE 49–60; RESP 16–20; TEMP 97.6–97.9; O2SAT 97
[2024-12-18 04:39] LABS: IMMATURE GRANULOCYTE ABSOLUTE 0.01 K/uL (0-1); NUCLEATED RED BLOOD CELLS 0.0 % (0.0-0.19); PLATELET COUNT (AUTO) 138 K/uL (130-400); RED BLOOD CELL COUNT(AUTO) 3.19 MIL/uL (4.50-6.20); RED CELL DISTRIBUTION WIDTH 17.2 % (11.0-15.5); WHITE BLOOD COUNT (AUTO) 4.2 K/uL (4.8-10.8)
[2024-12-18 04:53] LABS: ASPARTATE AMINOTRANSFERASE 31.0 U/L (10-37); CREATININE 1.3 mg/dL (0.5-1.3); GLOMERULAR FILTR. RATE CALC 56.0 mL/min (>90); GLUCOSE,RANDOM 103.0 mg/dL (70-105); SODIUM SERUM 142.0 mmol/L (136-145); TOTAL PROTEIN, SERUM 6.6 g/dL (6.0-8.3); UREA NITROGEN, BLOOD 26.0 mg/dL (7-18)
[2024-12-18 04:54] LABS: INR 1.45 (0.85-1.15)
--- NOTE | 2024-12-18 10:32 | PN ---
[facility] PROGRESS NOTE Date of Service: Dec 18, 2024 Time of Service: 10:26 SUBJECTIVE: [ ] This is a 78-year-old male underwent a repeat bonnie to evaluate left arterial appendage thrombus with Dr. Faviola adams on anticoagulation therapy switch Eliquis to warfarin5 mg every day on 09/07/2024.. Postprocedure AFib with low voltage we will be admitted overnight for observation. The patient has 2+ edema to lower extremity secondary to fluid overload patient is on Lasix 40 mg which was increased on 11/12/2024. Significant other at bedside all questions were concerned. Patient uses CPAP at night for sleep apnea advice significant other to bring from home so patient can use during the course of stay. Patient was seen in day surgery. He is fully awake alert oriented x3. Denied chest pain, palpitations. Patient reports shortness a breath with moderate exertion 12/17/24 patient was seen in PCCU. Patient continues with bradycardia waiting for EP DR Orta . Patient has edema to lower extremity improving. Denied chest pain or shortness for breath. 12/18/[address] Orta input: reviewed note in detailed. started the patient on Pindolol blood pressure improved. PT INR today 1.45 Patient is seen patient is fully awake alert oriented x3. Edema to lower extremities have improved significantly encouraged patient to ambulate in hallways we will get Physical therapy to work with patient. Possible discharge today if cleared by occupational therapist aide's with a INR 1.45 REVIEW OF SYSTEMS A 14 point ROS was obtained all relevant positive documented otherwise ROS negative PHYSICAL EXAM GENERAL APPEARANCE: The patient is awake, alert, and oriented, in no acute cardiopulmonary distress. NEUROLOGICAL: Cranial nerves II-XII grossly intact. Motor is 5/5 in bilateral upper and lower extremities proximal to distal. No sensory deficits. HEENT: Face is symmetric. Pupils are equal and reactive. Extraocular movements are intact. NECK: Supple. No JVD. No thyromegaly. No submental, submandibular, pre- /postauricular, occipital or supraclavicular lymphadenopathy. CHEST: Normal chest expansion. No Telemetry. LUNGS: Absence of any rales, rhonchi or any wheezing. CARDIOVASCULAR: Regular. S1 and S2 normal. No appreciable rubs, murmurs or g allops. ABDOMEN: Soft, nontender, and nondistended. There is no rebound, voluntary gua rding, or rigidity. : Deferred. No Rose. EXTREMITIES: Non-edematous and not cyanotic. No clubbing. Good capillary refill. SKIN: No skin breakdown. Vital Signs (last 8hr) Date Time Temp Pulse Resp B/P (MAP) Pulse Ox O2 Delivery O2 Flow Rate FiO2 12/18/24 08:00 97.5 57 20 111/60 97 Room Air 12/18/24 07:42 97 Room Air* 0 21 12/18/24 03:31 53 20 158/57 100 Room Air 12/18/24 03:28 52 20 145/47 97 Room Air 12/18/24 03:23 97.7 49 18 149/49 99 Room Air LABS: Laboratory: Test 12/18/24 05:11 12/18/24 04:30 Range/Units Whole Blood Glucose 98 70-110 MG/DL White Blood Count 4.2 L 4.8-10.8 K/uL Red Blood Count 3.19 L 4.50-6.20 MIL/uL Hemoglobin 7.9 L 14.0-18.0 g/dL Hematocrit 26.5 L 42-54 % Mean Corpuscular Volume 83.1 79-99 fL Mean Corpuscular Hemoglobin 24.8 L 27.0-33.0 pg Mean Corpuscular Hemoglobin Concent 29.8 L 32.0-36.0 g/dL Red Cell Distribution Width 17.2 H 11.0-15.5 % Platelet Count 138 130-400 K/uL Mean Platelet Volume 11.5 H 7.5-10.5 fL Immature Granulocyte % (Auto) 0.2 0-1 % Neutrophils (%) (Auto) 61.0 40.0-77.0 % Lymphocytes (%) (Auto) 23.8 21.0-51.0 % Monocytes (%) (Auto) 11.4 3.0-13.0 % Eosinophils (%) (Auto) 2.6 0.0-8.0 % Basophils (%) (Auto) 1.0 0.0-5.0 % Neutrophils # (Auto) 2.6 1.8-7.7 K/uL Lymphocytes # (Auto) 1.0 1.0-4.8 K/uL Monocytes # (Auto) 0.5 0.1-1.0 K/uL Eosinophils # (Auto) 0.11 0.00-0.70 K/uL Basophils # (Auto) 0.04 0.00-0.20 K/uL Absolute Immature Granulocyte (auto 0.01 0-1 K/uL Nucleated Red Blood Cells 0.0 0.0-0.19 % Prothrombin Time 14.8 H 9.6-11.6 SEC Prothromb Time International Ratio 1.45 H 0.85-1.15 Sodium Level 142 136-145 mmol/L Potassium Level 3.6 3.5-5.1 mmol/L Chloride Level 107 101-111 mmol/L Carbon Dioxide Level 29 21-32 mmol/L Blood Urea Nitrogen 26 H 7-18 mg/dL Creatinine 1.3 0.5-1.3 mg/dL Glomerular Filtration Rate Calc 56 >90 mL/min Random Glucose 103 70-105 mg/dL Total Calcium 7.9 L 8.5-10.1 mg/dL Magnesium Level 2.00 1.80-2.40 mg/dL Total Bilirubin 0.8 0.2-1.0 mg/dL Aspartate Amino Transf (AST/SGOT) 31 10-37 U/L Alanine Aminotransferase (ALT/SGPT) 33 12-78 U/L Alkaline Phosphatase 101 50-136 U/L B-Type Natriuretic Peptide 689 H 0-100 pg/mL Total Protein 6.6 6.0-8.3 g/dL Albumin 3.4 L 3.5-5.0 g/dL Current Medications Medications (Trade) Dose Ordered Sig/Jesus Route PRN Reason Start Time Stop Time Status Last Admin Dose Admin Acetaminophen (TYLenol 325MG TAB) 650 mg Q4H PRN PO TEMPERATURE GREATER THAN 101.5 12/16/24 15:00 01/15/25 14:59 Atorvastatin Calcium (LIPItor 40MG) 80 mg HS PO 12/16/24 21:00 01/15/25 20:59 12/17/24 20:19 80 MG Carvedilol (Coreg 12.5MG) 12.5 mg BID PO 12/16/24 21:00 12/17/24 15:20 DC 12/17/24 09:25 12.5 MG Clopidogrel Bisulfate (plaVIX 75MG) 75 mg HS PO 12/16/24 21:00 01/15/25 20:59 12/17/24 20:17 75 MG Doxazosin Mesylate (Doxazosin Mesylate) 8 mg HS PO 12/16/24 21:00 01/15/25 20:59 12/17/24 20:18 8 MG Furosemide (LASix 20MG VIAL) 20 mg Q8H IV 12/16/24 16:00 01/15/25 15:59 12/18/24 09:29 20 MG Furosemide (LASix 40MG TAB) 40 mg DAILY PO 12/17/24 09:00 12/16/24 19:28 DC Hydralazine HCl ([id number] TAB) 100 mg BID PO 12/16/24 21:00 01/15/25 20:59 12/18/24 09:28 100 MG Insulin Human Regular (humuLIN R 100 UNIT/ML 3ML) INSULIN SLIDING SCAL... ACHS SQ 12/16/24 16:30 01/15/25 16:29 Isosorbide Mononitrate (Imdur 30mg Sr) 30 mg DAILY PO 12/17/24 09:00 01/16/25 08:59 12/18/24 09:28 30 MG Lactulose (Constulose 20gm/ 30ml Udcup) 20 gm BID PRN PO CONSTIPATION 12/16/24 15:00 01/15/25 14:59 Losartan Potassium (CozAAR 100MG TAB) 100 mg DAILY PO 12/17/24 09:00 01/16/25 08:59 12/18/24 09:28 100 MG Magnesium Sulfate 50 ml @ 0 mls/hr PROTOCOL PRN IV low mag level 12/16/24 15:00 01/15/25 14:59 Ondansetron HCl (zoFRAN 4MG INJ) 4 mg Q6H PRN IVP NAUSEA/VOMITING 12/16/24 15:00 01/15/25 14:59 Pantoprazole Sodium (PROTonix 40MG INJ) 40 mg DAILY IVP 12/17/24 09:00 01/16/25 08:59 12/18/24 09:29 40 MG Pindolol (Visken) 5 mg BID PO 12/17/24 21:00 01/16/25 20:59 12/18/24 09:28 5 MG Potassium Chloride 100 ml @ 100 mls/hr AD PRN IV POTASSIUM PROTOCOL 12/16/24 15:00 01/15/25 14:59 Potassium Chloride (K-Dur/Klor-Con 20meq) 20 meq AD PRN PO POTASSIUM PROTOCOL 12/16/24 15:00 01/15/25 14:59 12/18/24 05:35 20 MEQ Potassium Chloride (K-Dur/Klor-Con 20meq) 20 meq DAILY PO 12/17/24 09:00 01/16/25 08:59 12/18/24 09:28 20 MEQ Potassium Chloride (K-Dur/Klor-Con 20meq) 20 meq Q24H PO 12/16/24 16:00 01/15/25 15:59 12/17/24 17:34 20 MEQ Potassium Chloride (KCl 10% Elixir 20meq/15ml) 20 meq AD PRN PO POTASSIUM PROTOCOL 12/16/24 15:00 01/15/25 14:59 Sertraline HCl (ZOloft 50 mg tab) 50 mg AM PO 12/17/24 09:00 01/16/25 08:59 12/18/24 09:27 50 MG Sodium Chloride 1,000 ml @ 0 mls/hr Q0M IV 12/16/24 08:30 12/17/24 09:27 DC 12/16/24 08:59 20 MLS/HR Warfarin Sodium (Coumadin) 5 mg DAILY17 PO 12/17/24 17:00 12/17/24 18:01 DC Warfarin Sodium (Coumadin) 5 mg DAILY17 PO 12/18/24 17:00 12/18/24 18:00 Cancel DIAGNOSTICS / RADIOLOGY: [ ] ASSESSMENT: AFib status post BONNIE hx: left atrial appendage thrombus A Fib with low response post procedure: POA 2+ edematous to lower extremity secondary Fluid overload POA hypercoagulable state secondary to Afibb on Coumadin Therapy POA CRF Stage III chronic anemia POA Aortic stenosis severe status post TAVR 03/2024 MICHELLE on Cpap POA Chronic problem hypertension, hyperlipidemia, diabetes Allergies Xarelto PLAN: [ ] Admit: PCCU condition: Guarded Status: Full code [facility] EP ( Dr Orta ) , cardiology's IVF: Hep-Lock fluid contraindicated Strict I&Os fluid restriction 1.5 L daily daily weight PT IRN: 1.45 Coumadin dosage defer to occupational therapist aide Heart rate: 50-s -57 Dr Castellano recommends to stop BB oxygen supplemental as needed to keep O2 sat above 92%, CPAP at HS Keep Hbg above 7.0 transfuse as needed, monitor for acute bleeding. Imaging venous Doppler bilateral lower extremity rule out DVT Labs cbc, cmp, mag+ Replace electrolytes as needed as per protocol to keep potassium above 4.0 magnesium 2.0. Home medications pending to be reviewed by RN nurse. Supportive measures: DVT ppx, GI ppx all questions answered time spent: > 35 min Supervising MD: Dr. Bender c/d This document was generated in part using voice recognition software, occasional wrong word or sound alike substitutions may have occurred due to the inherent limitations of voice recognition software. Read the chart carefully and recognize using context, where the substitutions have occurred. Although every effort was made to edit the content, fish skinning machine feeder and typing errors may occur ATTESTATION BY PHYSICIAN I have seen and examined the patient. I reviewed the documentation, medical decision making, and treatment plan as noted by the mid-level provider above. I agree with the findings and plan of care. Karely Bender MD, ELIZABETH NP Dec 18, 2024 10:32
--- NOTE | 2024-12-18 15:25 | PN ---
[facility] CARDIOLOGY PROGRESS NOTE Date Patient Seen: Dec 18, 2024 Time of Visit: 15:13 Interval History: This is an 78-year-old male with a medical history of HTN, HLD, and persistent on anticoagulation with coumadin, severe aortic stenosis s/p TAVR with Dr. Cano on 04/01/2024, RUPALI--> revealed moderate prosthetic aortic valve regurgitation with mild paravalvular leak, left atrial appendage thrombus( 4-22-25). The patient underwent outpatient RUPALI to evaluate PARMJIT thrombus resolution, however he was noted to be in atrial fibrillation with low ventricular response, also a moderate para valvular leak was noted with mild aortic regurgitation , moderate / severe mitral valve regurgitation and was admitted for further management. The patient is an 78-year-old male with a history of hypertension, hyperlipidemia, severe aortic stenosis status post TAVR by Dr. Cano in March of 2024. He also has a longstanding history of atrial fibrillation. Apparently, there have never been any previous attempts at restoring sinus rhythm by his physicians in [place]. He was in atrial fibrillation both prior to and following his TAVR. On 08/26/2024, the patient underwent transesophageal echocardiogram in preparation for cardioversion. RUPALI showed left atrial appendage thrombus and a severely dilated left atrium and right atrium. He also had a paravalvular leak with moderate aortic regurgitation. There was also [id number] mitral regurgitation with two eccentric jets and moderate tricuspid regurgitation. The LV ejection fraction was 50-55%. He was continued on amiodarone and a repeat RUPALI was done yesterday as an outpatient showing resolution of the previous thrombus. The LV ejection fraction was greater than 55% and other findings were identical to the previous study. He was admitted due to bradycardia and symptoms of ongoing orthostatic hypotension. He is also on warfarin with an INR of 1.65. Home medications pertinent to his bradycardia are carvedilol 12.5 mg b.i.d. and amiodarone 200 mg daily. In addition, he is on hydralazine, furosemide, isosorbide mononitrate, and valsartan, all of which can contribute to orthostatic hypotension. His carvedilol and amiodarone were withdrawn and he was initiated on pindolol 5 mg p.o. b.i.d. and he was continued on his other regimen of hydralazine, isosorbide and his valsartan has been transitioned to losartan while in the hospital. He has also required doxazosin. There was no evidence of orthostatic hypotension but does report orthostatic dizziness transiently on standing. He h as also been on an IV Lasix diuresis. Physical Examination: GENERAL: No acute distress. HEAD: Normal with no signs of head trauma. EYES: PERRLA, EOMI, conjunctiva and sclera normal. NECK: Supple without JVD. There is no tenderness, lymphadenopathy, or masses. No thyromegaly. Normal carotid upstrokes without bruits. LUNGS: Clear breath sounds bilaterally. No wheezes, or rhonchi. HEART: Underlying bradycardia. Normal S1 and S2 with a 2/6 early peaking systolic ejection murmur at the right upper sternal border, gallop or rub. VASC: Peripheral pulses +2 bilaterally. EXT: No clubbing, cyanosis or edema. NEURO: Awake, alert, and oriented x3. No focal neurological deficits noted. Laboratory: Hematology Labs: Test 12/18/24 04:30 Range/Units White Blood Count 4.2 L 4.8-10.8 K/uL Red Blood Count 3.19 L 4.50-6.20 MIL/uL Hemoglobin 7.9 L 14.0-18.0 g/dL Hematocrit 26.5 L 42-54 % Mean Corpuscular Volume 83.1 79-99 fL Mean Corpuscular Hemoglobin 24.8 L 27.0-33.0 pg Mean Corpuscular Hemoglobin Concent 29.8 L 32.0-36.0 g/dL Red Cell Distribution Width 17.2 H 11.0-15.5 % Platelet Count 138 130-400 K/uL Mean Platelet Volume 11.5 H 7.5-10.5 fL Immature Granulocyte % (Auto) 0.2 0-1 % Neutrophils (%) (Auto) 61.0 40.0-77.0 % Lymphocytes (%) (Auto) 23.8 21.0-51.0 % Monocytes (%) (Auto) 11.4 3.0-13.0 % Eosinophils (%) (Auto) 2.6 0.0-8.0 % Basophils (%) (Auto) 1.0 0.0-5.0 % Neutrophils # (Auto) 2.6 1.8-7.7 K/uL Lymphocytes # (Auto) 1.0 1.0-4.8 K/uL Monocytes # (Auto) 0.5 0.1-1.0 K/uL Eosinophils # (Auto) 0.11 0.00-0.70 K/uL Basophils # (Auto) 0.04 0.00-0.20 K/uL Absolute Immature Granulocyte (auto 0.01 0-1 K/uL Nucleated Red Blood Cells 0.0 0.0-0.19 % Chemistry Labs: Test 12/18/24 11:20 12/18/24 04:30 Range/Units Whole Blood Glucose 146 H 70-110 MG/DL Sodium Level 142 136-145 mmol/L Potassium Level 3.6 3.5-5.1 mmol/L Chloride Level 107 101-111 mmol/L Carbon Dioxide Level 29 21-32 mmol/L Blood Urea Nitrogen 26 H 7-18 mg/dL Creatinine 1.3 0.5-1.3 mg/dL Glomerular Filtration Rate Calc 56 >90 mL/min Random Glucose 103 70-105 mg/dL Total Calcium 7.9 L 8.5-10.1 mg/dL Magnesium Level 2.00 1.80-2.40 mg/dL Total Bilirubin 0.8 0.2-1.0 mg/dL Aspartate Amino Transf (AST/SGOT) 31 10-37 U/L Alanine Aminotransferase (ALT/SGPT) 33 12-78 U/L Alkaline Phosphatase 101 50-136 U/L B-Type Natriuretic Peptide 689 H 0-100 pg/mL Total Protein 6.6 6.0-8.3 g/dL Albumin 3.4 L 3.5-5.0 g/dL Coagulation Labs: Test 12/18/24 04:30 Range/Units Prothrombin Time 14.8 H 9.6-11.6 SEC Prothromb Time International Ratio 1.45 H 0.85-1.15 Diagnostics / Radiology: RUPALI 12/16/2024: Conclusion The left ventricle is normal size. There is mild to moderate concentric left ventricular wall thickness. The LVEF is > 55%. The right ventricle is moderately dilated. Systolic function is mildly reduced. The left atrium is severely dilated. No left atrial appendage thrombus noted. There is no mass or thrombus suspected in the left atrium. The right atrium is severely dilated. There is no mass or thrombus suspected in the right atrium. No evidence of PFO by color flow Doppler. Prosthetic aortic valve. Moderate paravalvular leak noted. Mild aortic regurgitation. There is moderate to severe mitral valve regurgitation noted. Descending aorta appears dilated. There is no pericardial effusion. Impression and Plan: Permanent atrial fibrillation with slow ventricular response -status post withdrawal of amiodarone and carvedilol -continue warfarin anticoagulation to target INR of 2-3 -no evidence of cardiac thrombus on follow-up RUPALI 12/16/2024 Acute on chronic diastolic congestive heart failure: Normal LV systolic function with an LVEF of greater than 55% by RUPALI 12/16/2024 -the patient has been on an IV Lasix diuresis and we will obtain a follow-up chest x-ray in a.m. Multidrug resistant hypertension: -given his atrial fibrillation with slow ventricular response, amiodarone and carvedilol were withdrawn -he has been placed on pindolol and has continued on hydralazine, nitrates, losartan and doxazosin -no evidence of orthostatic hypotension by orthostatic vital signs Comorbidities: Severe aortic stenosis s/p TAVR with Dr. Cano on 04/01/2024 Sleep apnea on CPAP therapy BETSY HELLERP Dec 18, 2024 15:25
--- NOTE | 2024-12-18 16:00 | NUR ---
RECEIVED REPORT FROM VELIA TRACEY REPORT GIVEN BY VELIA TRACEY. PATIENT CARE PLAN GIVEN THOROUGHLY. WILL RECEIVE PT SHORTLY.
[2024-12-18] MEDS: WARFARIN SODIUM 5 MG TAB PO ONE (16:26)
--- NOTE | 2024-12-18 16:47 | NUR ---
PATIENT TRANSFERRED VELIA TRACEY BROUGHT PT DOWN VIA WHEEL CHAIR. PATIENT SHOWS NO SIGNS OF DISTRESS. AMBULATORY AND CALM DISPLAY RIGHT NOW. PATIENT REPORTS NO PROBLEMS. WILL CONTINUE TO MONITOR.
[2024-12-18] MEDS ORDERED: WARFARIN SODIUM 5 MG TAB PO SCH (17:00)
[2024-12-18] MEDS ORDERED: WARFARIN SODIUM 5 MG TAB PO ONE ×3 (17:00)
[2024-12-19] VITALS (8 sets, daily range): BP systolic 118–157; BP diastolic 47–96; PULSE 52–64; RESP 16–20; TEMP 97.6–98.1; O2SAT 100
[2024-12-19 05:20] LABS: CREATININE 1.1 mg/dL (0.5-1.3); GLOMERULAR FILTR. RATE CALC 67.0 mL/min (>90); GLUCOSE,RANDOM 96.0 mg/dL (70-105); SODIUM SERUM 145.0 mmol/L (136-145); UREA NITROGEN, BLOOD 24.0 mg/dL (7-18)
[2024-12-19 05:26] LABS: INR 1.38 (0.85-1.15)
--- NOTE | 2024-12-19 09:54 | PN ---
[facility] CARDIOLOGY PROGRESS NOTE Date Patient Seen: Dec 19, 2024 Time of Visit: 09:49 Interval History: This is an 78-year-old male with a medical history of HTN, HLD, and persistent on anticoagulation with coumadin, severe aortic stenosis s/p TAVR with Dr. Cano on 04/01/2024, RUPALI--> revealed moderate prosthetic aortic valve regurgitation with mild paravalvular leak, left atrial appendage thrombus( 4-22-25). The patient underwent outpatient RUPALI to evaluate PARMJIT thrombus resolution, however he was noted to be in atrial fibrillation with low ventricular response, also a moderate para valvular leak was noted with mild aortic regurgitation , moderate / severe mitral valve regurgitation and was admitted for further management. The patient is an 78-year-old male with a history of hypertension, hyperlipidemia, severe aortic stenosis status post TAVR by Dr. Cano in March of 2024. He also has a longstanding history of atrial fibrillation. Apparently, there have never been any previous attempts at restoring sinus rhythm by his physicians in [place]. He was in atrial fibrillation both prior to and following his TAVR. On 08/26/2024, the patient underwent transesophageal echocardiogram in preparation for cardioversion. RUPALI showed left atrial appendage thrombus and a severely dilated left atrium and right atrium. He also had a paravalvular leak with moderate aortic regurgitation. There was also isqc-[id number]-[id number] mitral regurgitation with two eccentric jets and moderate tricuspid regurgitation. The LV ejection fraction was 50-55%. He was continued on amiodarone and a repeat RUPALI was done yesterday as an outpatient showing resolution of the previous thrombus. The LV ejection fraction was greater than 55% and other findings were identical to the previous study. He was admitted due to bradycardia and symptoms of ongoing orthostatic hypotension. He is also on warfarin with an INR of 1.65. Home medications pertinent to his bradycardia are carvedilol 12.5 mg b.i.d. and amiodarone 200 mg daily. His carvedilol and amiodarone were withdrawn and he was initiated on pindolol 5 mg p.o. b.i.d. and he was continued on his other regimen of hydralazine, isosorbide and his valsartan has been transitioned to losartan while in the hospital. He has also required doxazosin. There was no evidence of orthostatic hypotension but does report orthostatic dizziness transiently on standing. He has remained stable overnight without any orthostatic dizziness. Blood pressure has been in the 140-150 systolic range. INR today is 1.38. A follow- up chest x-ray this morning demonstrates cardiomegaly and only mild pulmonary vascular congestion. He denies orthopnea or PND in his actions for discharge home today as his is scheduled for surgery tomorrow. Physical Examination: GENERAL: No acute distress. HEAD: Normal with no signs of head trauma. EYES: PERRLA, EOMI, conjunctiva and sclera normal. NECK: Supple without JVD. There is no tenderness, lymphadenopathy, or masses. No thyromegaly. Normal carotid upstrokes without bruits. LUNGS: Clear breath sounds bilaterally. No wheezes, or rhonchi. HEART: Underlying bradycardia. Normal S1 and S2 with a 2/6 early peaking systolic ejection murmur at the right upper sternal border, gallop or rub. VASC: Peripheral pulses +2 bilaterally. EXT: No clubbing, cyanosis or edema. NEURO: Awake, alert, and oriented x3. No focal neurological deficits noted. Laboratory: Hematology Labs: Test 12/18/24 04:30 Range/Units White Blood Count 4.2 L 4.8-10.8 K/uL Red Blood Count 3.19 L 4.50-6.20 MIL/uL Hemoglobin 7.9 L 14.0-18.0 g/dL Hematocrit 26.5 L 42-54 % Mean Corpuscular Volume 83.1 79-99 fL Mean Corpuscular Hemoglobin 24.8 L 27.0-33.0 pg Mean Corpuscular Hemoglobin Concent 29.8 L 32.0-36.0 g/dL Red Cell Distribution Width 17.2 H 11.0-15.5 % Platelet Count 138 130-400 K/uL Mean Platelet Volume 11.5 H 7.5-10.5 fL Immature Granulocyte % (Auto) 0.2 0-1 % Neutrophils (%) (Auto) 61.0 40.0-77.0 % Lymphocytes (%) (Auto) 23.8 21.0-51.0 % Monocytes (%) (Auto) 11.4 3.0-13.0 % Eosinophils (%) (Auto) 2.6 0.0-8.0 % Basophils (%) (Auto) 1.0 0.0-5.0 % Neutrophils # (Auto) 2.6 1.8-7.7 K/uL Lymphocytes # (Auto) 1.0 1.0-4.8 K/uL Monocytes # (Auto) 0.5 0.1-1.0 K/uL Eosinophils # (Auto) 0.11 0.00-0.70 K/uL Basophils # (Auto) 0.04 0.00-0.20 K/uL Absolute Immature Granulocyte (auto 0.01 0-1 K/uL Nucleated Red Blood Cells 0.0 0.0-0.19 % Chemistry Labs: Test 12/19/24 05:16 12/19/24 04:53 12/18/24 04:30 Range/Units Whole Blood Glucose 105 70-110 MG/DL Sodium Level 145 136-145 mmol/L Potassium Level 4.2 3.5-5.1 mmol/L Chloride Level 109 101-111 mmol/L Carbon Dioxide Level 29 21-32 mmol/L Blood Urea Nitrogen 24 H 7-18 mg/dL Creatinine 1.1 0.5-1.3 mg/dL Glomerular Filtration Rate Calc 67 >90 mL/min Random Glucose 96 70-105 mg/dL Total Calcium 8.1 L 8.5-10.1 mg/dL Magnesium Level 2.00 1.80-2.40 mg/dL Total Bilirubin 0.8 0.2-1.0 mg/dL Aspartate Amino Transf (AST/SGOT) 31 10-37 U/L Alanine Aminotransferase (ALT/SGPT) 33 12-78 U/L Alkaline Phosphatase 101 50-136 U/L B-Type Natriuretic Peptide 689 H 0-100 pg/mL Total Protein 6.6 6.0-8.3 g/dL Albumin 3.4 L 3.5-5.0 g/dL Coagulation Labs: Test 12/19/24 04:53 Range/Units Prothrombin Time 14.2 H 9.6-11.6 SEC Prothromb Time International Ratio 1.38 H 0.85-1.15 Diagnostics / Radiology: RUPALI 12/16/2024: Conclusion The left ventricle is normal size. There is mild to moderate concentric left ventricular wall thickness. The LVEF is > 55%. The right ventricle is moderately dilated. Systolic function is mildly reduced. The left atrium is severely dilated. No left atrial appendage thrombus noted. There is no mass or thrombus suspected in the left atrium. The right atrium is severely dilated. There is no mass or thrombus suspected in the right atrium. No evidence of PFO by color flow Doppler. Prosthetic aortic valve. Moderate paravalvular leak noted. Mild aortic regurgitation. There is moderate to severe mitral valve regurgitation noted. Descending aorta appears dilated. There is no pericardial effusion. Impression and Plan: Permanent atrial fibrillation with slow ventricular response -status post withdrawal of amiodarone and carvedilol -continue warfarin anticoagulation to target INR of 2-3 -no evidence of cardiac thrombus on follow-up RUPALI 12/16/2024 Acute on chronic diastolic congestive heart failure: Normal LV systolic function with an LVEF of greater than 55% by RUPALI 12/16/2024 -restart home low-dose furosemide 20 mg p.o. daily. Multidrug resistant hypertension: -given his atrial fibrillation with slow ventricular response, amiodarone and carvedilol were withdrawn -he has been placed on pindolol and has continued on hydralazine, nitrates, losartan and doxazosin -no evidence of orthostatic hypotension by orthostatic vital signs Comorbidities: Severe aortic stenosis s/p TAVR with Dr. Cano on 04/01/2024 Sleep apnea on CPAP therapy No significant coronary artery disease by prior cardiac catheterization 03/01/2024 Peripheral artery disease with prior peripheral angiogram demonstrating bilateral anterior tibial and posterior tibial arteries to have chronic total occlusion, bilateral one-vessel runoff of the peroneal artery Right renal artery stenosis status post angioplasty Left peroneal artery 95% stenosis status post [employer] BETSY HELLER Dec 19, 2024 09:54
--- NOTE | 2024-12-19 10:15 | NUR ---
BRADYCARDIA RECEIVED CALL FROM TELE PT HR IN THE 30s. WALKED INTO THE ROOM TO FIND PT ON THE BED ASLEEP. WOKE UP PT TO ASSESS. PT AWAKE AND ALERT X 4. HE VERBALIZED FEELING GOOD. NO S/S OF DISTRESS. PAGED DR. MILLER WHOS ELECTRONIC GLUER FOR [facility] TODAY. WILL CONTINUE TO MONITOR.
[2024-12-19] MEDS: WARFARIN SODIUM 5 MG TAB PO ONE (14:41)
--- NOTE | 2024-12-19 15:59 | DS ---
Discharge Summary Hospital Course Summary: This is a 78-year-old male underwent a repeat bonnie to evaluate left arterial appendage thrombus with Dr. Faviola adams on anticoagulation therapy switch Eliquis to warfarin5 mg every day on 09/07/2024.. Postprocedure AFib with low voltage we will be admitted overnight for observation. The patient has 2+ edema to lower extremity secondary to fluid overload patient is on Lasix 40 mg which was increased on 11/12/2024. Significant other at bedside all questions were concerned. Patient uses CPAP at night for sleep apnea advice significant other to bring from home so patient can use during the course of stay. Patient was seen in day surgery. He is fully awake alert oriented x3. Denied chest pain, palpitations. Patient reports shortness a breath with moderate exertion 12/17/24 patient was seen in PCCU. Patient continues with bradycardia waiting for EP DR Orta . Patient has edema to lower extremity improving. Denied chest pain or shortness for breath. 12/18/[address] Orta input: reviewed note in detailed. started the patient on Pindolol blood pressure improved. PT INR today 1.45 Patient is seen patient is fully awake alert oriented x3. Edema to lower extremities have improved significantly encouraged patient to ambulate in hallways we will get Physical therapy to work with patient. Possible discharge today if cleared by server engineer's with a INR 1.45 12/19/24 patient is hemodynamically stable for discharge. Was cleared by Dr. Stockton. Home medication reviewed as per Dr. Adams patient amiodarone and carvedilol we will be discontinue and we will be discharged on pindolol5 mg p.o. b.i.d.. Patient denies any episodes of dizziness orthostatic hypotensive. Chu hemphill denied chest pain, shortness for breath, lower extremity edematous improved significantly. Patient to follow-up [facility] one-week with Dr. Adams. Procedure(s): REASON: 2+ SWELLING TO BILATERAL LOWER EXT; SOB ORDERING PHYSICIAN: GIOVANI CASTILLO NP PROCEDURE: VENOUS DORINDA - US VENOUS DOPPLER BILATERAL EXAMINATION: SPECTRAL DOPPLER ULTRASOUND EXAMINATION OF THE BILATERAL LOWER EXTREMITY VEINS. CLINICAL HISTORY: Swelling and shortness of breath. COMPARISON: None provided. TECHNIQUE: Real-time ultrasound scan of the veins of the bilateral lower extremity with color Doppler flow, spectral waveform analysis and compression. FINDINGS: DEEP VEINS: The common femoral, superficial femoral, and popliteal veins are echolucent and compressible. There is normal color Doppler flow throughout. The visualized calf veins appear patent. SUPERFICIAL VEINS: The greater saphenous veins are patent and compressible. SOFT TISSUES: No popliteal fossa cyst or other abnormalities. IMPRESSION: No deep venous thrombosis evident in the bilateral lower extremity. No superficial thrombophlebitis in the bilateral lower extremity. /[place] DICTATED BY: JUAN ARMSTRONG Jr., MD DATE: 12/17/24 0552 REASON: I23.6 ORDERING PHYSICIAN: LIZZY ADAMS MD PROCEDURE: ECHO BONNIE - ECHO BONNIE--TRANSESOPHAGEAL APPROVED REPORT EXAM: Transesophageal echocardiogram with color flow Doppler. INDICATION ICD: I23.6, Rule out thrombus Reason For Test : Rule out Intracardiac Thrombus. PROCEDURE After obtaining informed consent, patient underwent transesophageal echo in the daypatient room 14. 15 mL 2% Viscous Lidocaine was given as a topical anesthetic prior to the administration of the conscious sedation. Type of Sedation: General Anesthesia Sedation was administered by Please refer to medication adminstration record.. Sedation was achieved with Please refer to medication adminstration record. intravenously. Transesophageal probe was inserted and advanced into esophagus without difficulty by Lizzy Adams MD . BONNIE was performed and images were obtained, probe was removed without complications. Throughout the procedure, the blood pressure, pulse oximetry, cardiac rhythm, and rate were monitored. Left Ventricle The left ventricle is normal size. There is mild to moderate concentric left ventricular wall thickness. The LVEF is > 55%. Indeterminate diastolic function. Right Ventricle The right ventricle is moderately dilated. Systolic function is mildly reduced. Atria The left atrium is severely dilated. No left atrial appendage thrombus noted. There is no mass or thrombus suspected in the left atrium. No evidence of PFO by color flow Doppler. The right atrium is severely dilated. There is no mass or thrombus suspected in the right atrium. Aortic Valve Prosthetic aortic valve. Moderate paravalvular leak noted. Mild aortic regurgitation. There is no aortic valvular stenosis. Mitral Valve The mitral valve is normal in structure. There is moderate to severe mitral valve regurgitation noted. There is no mitral valve stenosis. Tricuspid Valve The tricuspid valve is normal in structure. There is no tricuspid valve regurgitation noted. Pulmonic Valve The pulmonary valve is normal in structure. There is no pulmonic valvular regurgitation. Great Vessels The aortic root is normal in size. Descending aorta appears dilated. Pericardium There is no pericardial effusion. Conclusion The left ventricle is normal size. There is mild to moderate concentric left ventricular wall thickness. The LVEF is > 55%. The right ventricle is moderately dilated. Systolic function is mildly reduced. The left atrium is severely dilated. No left atrial appendage thrombus noted. There is no mass or thrombus suspected in the left atrium. The right atrium is severely dilated. There is no mass or thrombus suspected in the right atrium. No evidence of PFO by color flow Doppler. Prosthetic aortic valve. Moderate paravalvular leak noted. Mild aortic regurgitation. There is moderate to severe mitral valve regurgitation noted. Descending aorta appears dilated. There is no pericardial effusion. DICTATED BY: LIZZY ADAMS MD DATE: 12/16/24 0800 Assessment/Plan: discharged dx/s: AFib status post BONNIE hx: left atrial appendage thrombus A Fib with low response post procedure: POA 2+ edematous to lower extremity secondary Fluid overload POA hypercoagulable state secondary to Afibb on Coumadin Therapy POA CRF Stage III chronic anemia POA Aortic stenosis severe status post TAVR 03/2024 MICHELLE on Cpap POA Chronic problem hypertension, hyperlipidemia, diabetes Allergies Xarelto PLAN: [ ] ADMISSION DATE: 12/16/2024 DISCHARGE DATE: 12/19/2024 DISPOSITION: Home CONDITION: Stable OPERATIONS RESEARCH SCIENTIST(S): Director Of Testing's, EP DR Orta FOLLOW UP APPOINTMENT(S): [facility] PROCEDURES: BONNIE -no evidence of cardiac thrombus on follow-up BONNIE 12/16/2024 IMAGING (S) report attached to summary : MICROBIOLOGY: report attached to summary; ACTIVITY: ab jacki HOME MEDICATIONS CHANGES ON HOME MEDICATIONS STOP CARVEDILOL 12.5 [address] Adams NEW MEDICATIONS Pindolol 5 gm po bid TEACHING:side effects and adverse reaction of new medications. Emergency instructions: The patient was instructed to present to the nearest Emergency Department or call 911 should their symptoms return or worsen. Home Medications: Reported Medications Warfarin Sodium (Warfarin Sodium) 5 Mg Tablet, 5 MG PO DAILY, TAB 7/29/25 Potassium Chloride (Potassium Chloride) 20 Meq Tab.er.prt, 20 MEQ PO DAILY 12/14/24 Hydralazine HCl (Hydralazine HCl) 100 Mg Tablet, 100 MG PO BID, TAB 12/14/24 Doxazosin Mesylate (Doxazosin Mesylate) 8 Mg Tablet, 8 MG PO HS, TAB 12/14/24 Isosorbide Mononitrate (Isosorbide Mononitrate ER) 30 Mg Tab.er.24h, 30 MG PO DAILY, TAB 12/14/24 Furosemide (Furosemide) 40 Mg Tablet, 40 MG PO DAILY, TAB 12/14/24 Clopidogrel Bisulfate (Clopidogrel) 75 Mg Tablet, 75 MG PO HS, TAB 07/07/24 Valsartan (Valsartan) 160 Mg Tablet, 160 MG PO BID, TAB 07/07/24 Atorvastatin Calcium (Atorvastatin Calcium) 80 Mg Tablet, 80 MG PO HS, TAB 07/07/24 Amiodarone HCl (Amiodarone HCl) 200 Mg Tablet, 200 MG PO AM, TAB 07/07/24 Sertraline HCl (Sertraline HCl) 50 Mg Tablet, 50 MG PO AM, TAB 07/07/24 Discontinued Reported Medications Carvedilol (Carvedilol) 12.5 Mg Tablet, 12.5 MG PO BID, TAB 12/14/24 Apixaban (Eliquis) 5 Mg Tablet, 5 MG PO BID, TAB 08/24/24 Doxazosin Mesylate (Doxazosin Mesylate) 8 Mg Tablet, 8 MG PO HS, TAB 07/07/24 Furosemide (Furosemide) 20 Mg Tablet, 20 MG PO AM, TAB 07/07/24 New Medications: Pindolol (Visken) 5 Mg Tab 5 MG PO BID for 30 Days, #60 TAB Continued Medications: Atorvastatin Calcium (Atorvastatin Calcium) 80 Mg Tablet 80 MG PO HS, TAB Clopidogrel Bisulfate (Clopidogrel) 75 Mg Tablet 75 MG PO HS, TAB Doxazosin Mesylate (Doxazosin Mesylate) 8 Mg Tablet 8 MG PO HS, TAB Furosemide (Furosemide) 40 Mg Tablet 40 MG PO DAILY, TAB Hydralazine HCl (Hydralazine HCl) 100 Mg Tablet 100 MG PO BID, TAB Isosorbide Mononitrate (Isosorbide Mononitrate ER) 30 Mg Tab.er.24h 30 MG PO DAILY, TAB Potassium Chloride (Potassium Chloride) 20 Meq Tab.er.prt 20 MEQ PO DAILY Sertraline HCl (Sertraline HCl) 50 Mg Tablet 50 MG PO AM, TAB Valsartan (Valsartan) 160 Mg Tablet 160 MG PO BID, TAB Warfarin Sodium (Warfarin Sodium) 5 Mg Tablet 5 MG PO DAILY, TAB Discontinued Medications: Amiodarone HCl (Amiodarone HCl) 200 Mg Tablet 200 MG PO AM, TAB Carvedilol (Carvedilol) 12.5 Mg Tablet 12.5 MG PO BID, TAB Time spent arranging discharge: 31-60 minutes ATTESTATION BY PHYSICIAN I have seen and examined the patient. I reviewed the documentation, medical decision making, and treatment plan as noted by the mid-level provider above. I agree with the findings and plan of care. Karely Bender MD, ELIZABETH NP Dec 19, 2024 15:59
[2024-12-19] MEDS ORDERED: PIND5TAB8 PO (16:08)
[2024-12-19] MEDS ORDERED: FURO20TA6 PO (16:16)
--- NOTE | 2024-12-19 16:25 | NUR ---
PT WAS EDUCATED ON NEW MEDICATIONS. PT VERBALIZED UNDERSTANDING AND DENIED NEEDING FURTHER ASSISTANCE. IV WAS REMOVED WITHOUT COMPLICATIONS. AQUATIC PERFORMER WAS REMOVED. PT WAS TRANSPORTED TO THE MAIN LOBBY VIA W/C BY TRACTOR SWEEPER OPERATOR. NO S/S OF DISTRESS. SPOKE TO JEANINE REGARDING NEW MEDS BEING SENT TO PHARMACY. PHARMACY IS CLOSED TODAY. SHE VERBALIZE MEDICATIONS WOULD BE CALLED IN. PER OSMANI ASSISTANT COMMUNITY MANAGER MEDICATIONS HAVE BEEN SENT TO PHARMACY VIA ELECTRONICALLY.
--- NOTE | 2024-12-19 19:15 | HMCIMG ---
EXAM: CR Chest, 1 View. CLINICAL HISTORY: chf COMPARISON: None provided. FINDINGS: LUNGS: The lungs show no infiltrate or other acute finding. PLEURAL SPACES: No evidence of pleural effusion or pneumothorax. MEDIASTINUM: Prior aortic valve replacement. Mild to moderate cardiomegaly. Pulmonary vasculature and interstitial markings remain within normal limits. Atherosclerosis of the thoracic aorta. BONES: No aggressive appearing osseous lesion seen. IMPRESSION: 1. No acute cardiopulmonary findings. 2. Mild to moderate cardiomegaly. /[place]
== END 2024-12-19 16:25 | disposition home or self-care (01) | DRG 291 ==
LOC: DAH 08:11 → DAHIP 08:12 → DAH 08:13 → 2DH 18:14 → 4BH 12-18 16:57
PROVIDERS: ADMIT Internal Medicine; ATTEND Internal Medicine
PROC: B24BZZ4 Ultrasonography of Heart with Aorta, Transesophageal (ICD-10-PCS; principal; 2024-12-16)
PROC: 5A09357 Assistance with Respiratory Ventilation, Less than 24 Consecutive Hours, Continuous Positive Airway Pressure (ICD-10-PCS; 2024-12-17)
PROC: 5A09357 Assistance with Respiratory Ventilation, Less than 24 Consecutive Hours, Continuous Positive Airway Pressure (ICD-10-PCS; 2024-12-19)
DX: I13.0 Hypertensive heart and chronic kidney disease with heart failure and stage 1 through stage 4 chronic kidney disease, or unspecified chronic kidney disease (principal); I50.33 Acute on chronic diastolic (congestive) heart failure; D68.69 Other thrombophilia; I48.21 Permanent atrial fibrillation; N18.30 Chronic kidney disease, stage 3 unspecified; D64.9 Anemia, unspecified; I35.2 Nonrheumatic aortic (valve) stenosis with insufficiency; E11.22 Type 2 diabetes mellitus with diabetic chronic kidney disease; E78.5 Hyperlipidemia, unspecified; I1A.0 Resistant hypertension; I08.3 Combined rheumatic disorders of mitral, aortic and tricuspid valves; G47.33 Obstructive sleep apnea (adult) (pediatric); Z79.01 Long term (current) use of anticoagulants; Z79.899 Other long term (current) drug therapy; Z95.2 Presence of prosthetic heart valve
CPT/HCPCS: 36415; 71045; 80048; 80053; 82948; 83735; 83880; 85025; 85610; 85730; 93005; 93312; 93325; 93970; A4606; G0378; J1938; J2250; J2312; J2470; J2704; J3010; J3490; J7030; A4215; A4216; A4221; A4222; A4223; A4615; A4620; A4657; A4663